=== PATIENT | male | born 1950 | race Caucasian/White ===

== ENCOUNTER 2019-07-21 18:50 | Emergency (ER) | payer MEDICARE ==
[2019-07-21 19:03] VITALS: TEMP 98.3
[2019-07-21 20:02] LABS: Basophils % (A) 0 %; Eosinophils # (A) 0.3 k/uL (0-0.7); Eosinophils % (A) 2 %; HCT 46.1 % (39.0-53.0); HGB 15.9 gm/dL (13.0-17.5); Lymphocytes # (A) 1.4 k/uL (1.0-4.8); Lymphocytes % (A) 9 %; MCH 30.4 pg (25.0-35.0); MCHC 34.5 g/dL (31.0-37.0); MCV 88.2 fL (80.0-100.0); Monocytes # (A) 0.7 k/uL (0-1.0); Monocytes % (A) 5 %; Neutrophils # (A) 12.3 k/uL (1.3-7.7); Neutrophils % (A) 83 %; Platelet Count 161 k/uL (150-450); RBC 5.22 m/uL (4.30-5.90); RDW 13.6 % (11.5-15.5); WBC 14.9 k/uL (3.8-10.6)
--- NOTE | 2019-07-21 20:02 | XR ---
EXAMINATION TYPE: XR chest 1V portable DATE OF EXAM: 07/21/2019 COMPARISON: NONE HISTORY: Cough TECHNIQUE: Single frontal view of the chest is obtained. FINDINGS: Subsegmental changes at the lung bases. Hyperinflation. No overt failure. Heart mildly enl arged. Eventration right hemidiaphragm. Arthropathy of the shoulders. No overt failure. IMPRESSION: 1. Findings suggest COPD with basilar atelectasis favored over pneumonia. Retrocardiac density in the left paraspinal region may represent a small hiatal hernia could be correlated with PA and lateral v iews of the chest as clinically warranted.
[2019-07-21 20:11] LABS: Albumin 4.5 g/dL (3.5-5.0); C Reactive Protein 63.8 mg/L (<10.0); Calcium 9.4 mg/dL (8.4-10.2); Potassium 4.3 mmol/L (3.5-5.1); Total Bilirubin 0.7 mg/dL (0.2-1.3); Total Protein 7.5 g/dL (6.3-8.2)
[2019-07-21 20:14] LABS: Partial Thromboplastin Time 23.7 sec (22.0-30.0); Prothrombin Time 10.1 sec (9.0-12.0)
--- NOTE | 2019-07-21 20:31 | ED ---
Fever HPI - General Chief Complaint: Fever Stated Complaint: Fever,sob,cough Time Seen by Provider: 07/21/19 19:00 Source: patient Mode of arrival: ambulatory Limitations: no limitations - History of Present Illness Initial Comments: The patient is a 68-year-old male past medical history of emphysema and hypertension presents emergency department with reported fevers, nonproductive cough and general myalgias. The patient reports that his symptoms started yesterday. He denies any sick contacts with similar symptoms. He reports to lower calf cramping and shortness of breath. Also admits to feeling lightheaded. Denies any chest pain. No previous cardiac history. Has been using his inhalers as directed however continues to have shortness of breath. States that his temperature 102 at home. He took Maeve aspirin for his fevers. Denies any nausea or vomiting. No abdominal pain or back pain. No lower extremity edema. There are no other alleviating, precipitating or modifying factors - Related Data Home Medications Medication Instructions Recorded Confirmed Albuterol Sulfate [Proair Hfa] 2 puff INHALATION RT-Q4H PRN 07/21/19 07/21/19 Beclomethasone Dipropionate [Qvar 1 puff INHALATION RT-DAILY 07/21/19 07/21/19 40 mcg Redihaler] Lisinopril [Zestril] 20 mg PO DAILY 07/21/19 07/21/19 Potassium Chloride ER [K-Dur 20] 20 meq PO DAILY 07/21/19 07/21/19 Previous Rx's Medication Instructions Recorded Amoxicillin/Potassium Clav 1 tab PO Q12HR #20 tab 07/21/19 [Augmentin 875-125 Tablet] predniSONE [Deltasone] 20 mg PO BID #10 tab 07/21/19 Allergies Allergy/AdvReac Type Severity Reaction Status Date / Time No Known Allergies Allergy Verified 07/21/19 22:07 Review of Systems ROS Statement: Those systems with pertinent positive or pertinent negative responses have been documented in the HPI. ROS Other: All systems not noted in ROS Statement are negative. Past Medical History Past Medical History: Hypertension Additional Past Medical History / Comment(s): emphysema Past Surgical History: No Surgical Hx Reported Smoking Status: Former smoker Past Alcohol Use History: None Reported Past Drug Use History: None Reported General Exam Limitations: no limitations General appearance: alert, in no apparent distress, other (diaphoretic) Head exam: Present: atraumatic, normocephalic, normal inspection Eye exam: Present: normal appearance, PERRL, EOMI. Absent: scleral icterus, conjunctival injection, periorbital swelling ENT exam: Present: normal exam, mucous membranes moist Neck exam: Present: normal inspection. Absent: tenderness, meningismus, lymphadenopathy Respiratory exam: Present: wheezes. Absent: respiratory distress, rales, rhonchi, stridor Cardiovascular Exam: Present: normal rhythm, tachycardia, normal heart sounds. Absent: systolic murmur, diastolic murmur, rubs, gallop, clicks GI/Abdominal exam: Present: soft, normal bowel sounds. Absent: distended, tenderness, guarding, rebound, rigid Extremities exam: Present: normal inspection, full ROM, normal capillary refill. Absent: tenderness, pedal edema, joint swelling, calf tenderness Back exam: Present: normal inspection Neurological exam: Present: alert, oriented X3, CN II-XII intact Psychiatric exam: Present: normal affect, normal mood Skin exam: Present: warm, dry, intact, normal color. Absent: rash Course Vital Signs 07/21/19 07/21/19 07/21/19 18:57 19:18 20:30 Temperature 98.3 F Pulse Rate 121 H 108 H Respiratory 18 24 Rate Blood Pressure 101/68 113/73 O2 Sat by Pulse 94 L 93 L Oximetry 07/21/19 07/21/19 07/22/19 21:00 21:30 00:12 Temperature Pulse Rate 102 H 104 H 95 Respiratory 18 Rate Blood Pressure 100/72 95/68 101/74 O2 Sat by Pulse 93 L 94 L 94 L Oximetry Medical Decision Making - Medical Decision Making Upon arrival the patient is placed in room 10. A thorough history and physical exam is performed. The patient is extremely diaphoretic. 12-lead EKG is performed which demonstrates sinus tachycardia. Laboratories were conducted which demonstrated white blood cell count of 14.9. D-dimer elevated at 1. Glucose 117. Troponin is negative. C-reactive protein 63.8. BNP 258. Influenza A, B and coronavirus are negative. Chest x-ray was performed which demonstrates findings suggestive of COPD with bibasilar atelectasis. Because of patient's elevated d-dimer chest CTA was performed which demonstrates no evidence of pulmonary embolism with mild pulmonary infiltrates. The patient is reevaluated and states he feels much improved. Vitals are assessed and the patient does have a normal heart rate. Patient continues saturating 94% on room air. Patient does have a dip in his blood pressure however this does normalize. I discussed the diagnosis, differential and treatment options. Patient prefers to be discharged home at this time as he is concerned about the Covid pandemic. I did request a repeat a troponin on the patient for which he did agree. Second troponin returns and is negative. This time the patient will be discharged home on antibiotics and steroids. He is to follow-up with his primary care doctor in 2-4 days. Return to work for for any new or worsening symptoms. Patient was in agreement treatment plan discharge home in stable condition - Lab Data Result diagrams: 07/21/19 19:40 07/21/19 19:40 Lab Results 07/21/19 07/21/19 07/21/19 Range/Units 19:40 19:40 19:40 WBC 14.9 H (3.8-10.6) k/uL RBC 5.22 (4.30-5.90) m/uL Hgb 15.9 (13.0-17.5) gm/dL Hct 46.1 (39.0-53.0) % MCV 88.2 (80.0-100.0) fL MCH 30.4 (25.0-35.0) pg MCHC 34.5 (31.0-37.0) g/dL RDW 13.6 (11.5-15.5) % Plt Count 161 (150-450) k/uL Neutrophils % 83 % Lymphocytes % 9 % Monocytes % 5 % Eosinophils % 2 % Basophils % 0 % Neutrophils # 12.3 H (1.3-7.7) k/uL Lymphocytes # 1.4 (1.0-4.8) k/uL Monocytes # 0.7 (0-1.0) k/uL Eosinophils # 0.3 (0-0.7) k/uL Basophils # 0.0 (0-0.2) k/uL PT 10.1 (9.0-12.0) sec INR 1.0 (<1.2) APTT 23.7 (22.0-30.0) sec D-Dimer 1.00 H (<0.60) mg/L FEU Sodium 135 L (137-145) mmol/L Potassium 4.3 (3.5-5.1) mmol/L Chloride 102 (98-107) mmol/L Carbon Dioxide 23 (22-30) mmol/L Anion Gap 10 mmol/L BUN 18 (9-20) mg/dL Creatinine 1.25 (0.66-1.25) mg/dL Est GFR (CKD-EPI)AfAm 68 (>60 ml/min/1.73 sqM) Est GFR (CKD-EPI)NonAf 58 (>60 ml/min/1.73 sqM) Glucose 117 H (74-99) mg/dL Plasma Lactic Acid Marvin (0.7-2.0) mmol/L Calcium 9.4 (8.4-10.2) mg/dL Ferritin 234.1 (22.0-322.0) ng/mL Total Bilirubin 0.7 (0.2-1.3) mg/dL AST 26 (17-59) U/L ALT 23 (4-49) U/L Alkaline Phosphatase 51 (38-126) U/L Lactate Dehydrogenase 532 (313-618) U/L Troponin I (0.000-0.034) ng/mL C-Reactive Protein 63.8 H (<10.0) mg/L NT-Pro-B Natriuret Pep pg/mL Total Protein 7.5 (6.3-8.2) g/dL Albumin 4.5 (3.5-5.0) g/dL Procalcitonin (0.02-0.09) ng/mL Coronavirus (PCR) (Not Detectd) Influenza Type A RNA (Not Detectd) Influenza Type B (PCR) (Not Detectd) 07/21/19 07/21/19 07/21/19 Range/Units 19:40 19:40 19:40 WBC (3.8-10.6) k/uL RBC (4.30-5.90) m/uL Hgb (13.0-17.5) gm/dL Hct (39.0-53.0) % MCV (80.0-100.0) fL MCH (25.0-35.0) pg MCHC (31.0-37.0) g/dL RDW (11.5-15.5) % Plt Count (150-450) k/uL Neutrophils % % Lymphocytes % % Monocytes % % Eosinophils % % Basophils % % Neutrophils # (1.3-7.7) k/uL Lymphocytes # (1.0-4.8) k/uL Monocytes # (0-1.0) k/uL Eosinophils # (0-0.7) k/uL Basophils # (0-0.2) k/uL PT (9.0-12.0) sec INR (<1.2) APTT (22.0-30.0) sec D-Dimer (<0.60) mg/L FEU Sodium (137-145) mmol/L Potassium (3.5-5.1) mmol/L Chloride (98-107) mmol/L Carbon Dioxide (22-30) mmol/L Anion Gap mmol/L BUN (9-20) mg/dL Creatinine (0.66-1.25) mg/dL Est GFR (CKD-EPI)AfAm (>60 ml/min/1.73 sqM) Est GFR (CKD-EPI)NonAf (>60 ml/min/1.73 sqM) Glucose (74-99) mg/dL Plasma Lactic Acid Marvin 1.0 (0.7-2.0) mmol/L Calcium (8.4-10.2) mg/dL Ferritin (22.0-322.0) ng/mL Total Bilirubin (0.2-1.3) mg/dL AST (17-59) U/L ALT (4-49) U/L Alkaline Phosphatase (38-126) U/L Lactate Dehydrogenase (313-618) U/L Troponin I <0.012 (0.000-0.034) ng/mL C-Reactive Protein (<10.0) mg/L NT-Pro-B Natriuret Pep pg/mL Total Protein (6.3-8.2) g/dL Albumin (3.5-5.0) g/dL Procalcitonin 0.26 H (0.02-0.09) ng/mL Coronavirus (PCR) (Not Detectd) Influenza Type A RNA (Not Detectd) Influenza Type B (PCR) (Not Detectd) 07/21/19 07/21/19 07/21/19 Range/Units 20:23 23:05 23:05 WBC (3.8-10.6) k/uL RBC (4.30-5.90) m/uL Hgb (13.0-17.5) gm/dL Hct (39.0-53.0) % MCV (80.0-100.0) fL MCH (25.0-35.0) pg MCHC (31.0-37.0) g/dL RDW (11.5-15.5) % Plt Count (150-450) k/uL Neutrophils % % Lymphocytes % % Monocytes % % Eosinophils % % Basophils % % Neutrophils # (1.3-7.7) k/uL Lymphocytes # (1.0-4.8) k/uL Monocytes # (0-1.0) k/uL Eosinophils # (0-0.7) k/uL Basophils # (0-0.2) k/uL PT (9.0-12.0) sec INR (<1.2) APTT (22.0-30.0) sec D-Dimer (<0.60) mg/L FEU Sodium (137-145) mmol/L Potassium (3.5-5.1) mmol/L Chloride (98-107) mmol/L Carbon Dioxide (22-30) mmol/L Anion Gap mmol/L BUN (9-20) mg/dL Creatinine (0.66-1.25) mg/dL Est GFR (CKD-EPI)AfAm (>60 ml/min/1.73 sqM) Est GFR (CKD-EPI)NonAf (>60 ml/min/1.73 sqM) Glucose (74-99) mg/dL Plasma Lactic Acid Marvin (0.7-2.0) mmol/L Calcium (8.4-10.2) mg/dL Ferritin (22.0-322.0) ng/mL Total Bilirubin (0.2-1.3) mg/dL AST (17-59) U/L ALT (4-49) U/L Alkaline Phosphatase (38-126) U/L Lactate Dehydrogenase (313-618) U/L Troponin I <0.012 (0.000-0.034) ng/mL C-Reactive Protein (<10.0) mg/L NT-Pro-B Natriuret Pep 258 pg/mL Total Protein (6.3-8.2) g/dL Albumin (3.5-5.0) g/dL Procalcitonin (0.02-0.09) ng/mL Coronavirus (PCR) Not Detected (Not Detectd) Influenza Type A RNA Not Detected (Not Detectd) Influenza Type B (PCR) Not Detected (Not Detectd) - EKG Data EKG Comments: EKG demonstrates a sinus tachycardia with a ventricular rate of 112. ID interval 156. QRS 86. QTC 461. No acute ST segment elevations or depressions concerning for ischemic changes. Disposition Clinical Impression: Cough, COPD (chronic obstructive pulmonary disease) Disposition: HOME SELF-CARE Condition: Stable Instructions (If sedation given, give patient instructions): Pneumonia (ED) Additional Instructions: Please follow up with your primary care doctor in 2-4 days. Return to the emergency room for any new or worsening symptoms Prescriptions: Amoxicillin/Potassium Clav [Augmentin 875-125 Tablet] 1 tab PO Q12HR #20 tab predniSONE [Deltasone] 20 mg PO BID #10 tab Is patient prescribed a controlled substance at d/c from ED?: No Referrals: Jose Angel Colby DO [Primary Care Provider] - 1-2 days Time of Disposition: 23:54
[2019-07-21] MEDS ORDERED: SODIUM CHLORIDE 0.9% 500 ML 500 ML IV ONE (21:56)
--- NOTE | 2019-07-21 22:27 | CT ---
EXAMINATION TYPE: CT chest angio for PE DATE OF EXAM: 07/21/2019 COMPARISON: None HISTORY: Shortness of breath, chest pain, tachycardia, fever, dry cough, elevated d-dimer and leg ignacio n. CT DLP: 1503.7 mGycm Automated exposure control for dose reduction was used. CONTRAST: Performed with IV Contrast, patient injected with 160 mL of Isovue 370. There are 3-D post processed images. There is some pulmonary emphysema with mild bullous disease at the lung apices. There is reticular in terstitial infiltrate in the superior segment right lower lobe adjacent to the spine. There is some p atchy airspace and interstitial infiltrate at the posterior lung bases. There is no pleural effusion. There is no pericardial effusion. Heart size is normal. There is normal contrast opacification of the pulmonary arteries. There are no filling defects. Thora cic aorta is intact without evidence of aneurysm or dissection. There is hypertrophic spurring in the thoracic spine. I see no bony destructive process. IMPRESSION: No evidence of pulmonary embolism. Mild pulmonary infiltrates as above more likely related to inflammatory disease. Pulmonary emphysema.
[2019-07-21] MEDS ORDERED: methylPREDNISolone SOD SUCCI 125 MG/2 ML VIAL IV STA (23:32)
[2019-07-21] MEDS ORDERED: AZITHROMYCIN 500 MG TAB PO STA (23:33)
[2019-07-21] MEDS ORDERED: cefTRIAXone IN SWFI 1,000 MG/10 ML SYRINGE IVP STA (23:33)
[2019-07-22 00:13] VITALS: BP 101/74; PULSE 95; RESP 18
[2019-07-22 01:50] LABS: Ferritin 234.1 ng/mL (22.0-322.0)
== END 2019-07-22 00:22 | disposition home or self-care (01) ==
LOC: EC 18:50
DX: Z03.818 Encounter for observation for suspected exposure to other biological agents ruled out (principal); J44.9 Chronic obstructive pulmonary disease, unspecified; R79.89 Other specified abnormal findings of blood chemistry; I10 Essential (primary) hypertension; Z87.891 Personal history of nicotine dependence; Z79.51 Long term (current) use of inhaled steroids; Z79.899 Other long term (current) drug therapy
CPT/HCPCS: 99284; 96374; 96375; 96361 ×2; 36415; 93005; 85379; 83880; 80053; 82728; 83605; 83615; 84484; 85025; 85610; 85730; 86140; 87040; 87502; 84145; 87635; 71045; 71275; J2930; J0696; Q9967

== ENCOUNTER 2022-06-23 15:49 | Inpatient (IN) | payer MEDICARE ==
[2022-06-23] MEDS ORDERED: IPRATROPIUM-ALBUTEROL 3 ML NEB INHALATION STA (16:44)
[2022-06-23] MEDS ORDERED: methylPREDNISolone SOD SUCCI 125 MG/2 ML VIAL IV STA (16:44)
--- NOTE | 2022-06-23 16:46 | ED ---
SOB HPI - General Chief Complaint: Shortness of Breath Stated Complaint: chest congestion Time Seen by Provider: 06/23/22 16:46 Source: patient, RN notes reviewed Mode of arrival: ambulatory Limitations: no limitations - History of Present Illness Initial Comments: Patient is a 71-year-old male presenting with chief complaint of shortness of breath. Patient admits to headache, congestion, and productive cough that has been ongoing for the last 3 days. Patient is a former smoker and has history of COPD. Patient states that "it feels like my chest is congested". No fevers or chills. No chest pain. No palpitations or weakness. No numbness or tingling. No dizziness or lightheadedness. - Related Data Home Medications Medication Instructions Recorded Confirmed Albuterol Sulfate [Proair Hfa] 2 puff INHALATION RT-Q4H PRN 07/21/19 06/23/22 Beclomethasone Dipropionate [Qvar 2 puff INHALATION RT-BID PRN 07/21/19 06/23/22 40 mcg Redihaler] Allergies Allergy/AdvReac Type Severity Reaction Status Date / Time No Known Allergies Allergy Verified 06/23/22 20:53 Review of Systems ROS Statement: Those systems with pertinent positive or pertinent negative responses have been documented in the HPI. ROS Other: All systems not noted in ROS Statement are negative. Past Medical History Past Medical History: COPD, Hypertension Additional Past Medical History / Comment(s): emphysema History of Any Multi-Drug Resistant Organisms: None Reported Past Surgical History: No Surgical Hx Reported Past Psychological History: No Psychological Hx Reported Smoking Status: Former smoker Past Alcohol Use History: None Reported Past Drug Use History: None Reported General Exam - General Exam Comments Initial Comments: Visual Physical Exam Vital signs reviewed General: Well-appearing, nontoxic, no acute distress. Head: Normocephalic, atraumatic Eyes: PERRLA, EOMI ENT: Airway patent Chest: Nonlabored breathing Skin: No visual rash, normal skin tone Neuro: Alert and oriented 3 Musculoskeletal: No gross abnormalities Limitations: no limitations General appearance: alert, in no apparent distress Head exam: Present: atraumatic, normocephalic, normal inspection Eye exam: Present: normal appearance Neck exam: Present: normal inspection, full ROM Respiratory exam: Present: wheezes Cardiovascular Exam: Present: normal rhythm, tachycardia, normal heart sounds. Absent: systolic murmur, diastolic murmur, rubs, gallop, clicks Neurological exam: Present: alert, oriented X3, CN II-XII intact Psychiatric exam: Present: normal affect, normal mood Skin exam: Present: warm, dry, intact, normal color. Absent: rash Course Vital Signs 06/23/22 06/23/22 06/23/22 16:37 18:48 18:59 Temperature 98.8 F Pulse Rate 97 102 H 104 H Respiratory 22 Rate Blood Pressure 167/109 O2 Sat by Pulse 91 L Oximetry 06/23/22 06/23/22 06/23/22 20:06 21:09 21:23 Temperature Pulse Rate 112 H 109 H 109 H Respiratory 18 20 Rate Blood Pressure 163/111 167/111 O2 Sat by Pulse 93 L 94 L Oximetry 06/23/22 21:50 Temperature Pulse Rate 116 H Respiratory Rate Blood Pressure O2 Sat by Pulse Oximetry Medical Decision Making - Medical Decision Making Was pt. sent in by a medical professional or institution (, PA, CONSUMER AFFAIRS SPECIALIST, urgent care, hospital, or usp...) When possible be specific @ -No Did you speak to anyone other than the patient for history (EMS, parent, family, police, friend...)? What history was obtained from this source @ -No Did you review nursing and triage notes (agree or disagree)? Why? @ -I reviewed and agree with nursing and triage notes Were old charts reviewed (outside hosp., previous admission, EMS record, old EKG, old radiological studies, urgent care reports/EKG's, usp records)? Report findings @ -No old charts were reviewed Differential Diagnosis (chest pain, altered mental status, abdominal pain women, abdominal pain men, vaginal bleeding, weakness, fever, dyspnea, syncope, headache, dizziness, GI bleed, back pain, seizure, CVA, palpatations, mental health, musculoskeletal)? @ -MDM Differential Dyspnea: Coronary syndrome, arrhythmia, tamponade, asthma, COPD, pulmonary embolism, pneumonia, pneumothorax, pulmonary effusion, anaphylaxis, diabetic ketoacidosis, flailed chest, pulmonary contusion, diaphragmatic rupture, anemia, neuromuscular this is not meant to be an all-inclusive list. EKG interpreted by me (3pts min.). @ -Sinus rhythm ventricular rate 99. NE interval 156. QRS 86. QT 339. QTc 395. S1 S2 S3 pattern consistent with pulmonary disease. X-rays interpreted by me (1pt min.). @ -Chest x-ray shows no acute process. CT interpreted by me (1pt min.). @ -CTA shows no evidence of pulmonary embolism. Mild pulmonary emphysema. There is some left lower lobe pneumonia and atelectasis which is new compared to exam there is clearing of some mild pneumonia right posterior lung base compared to old exam U/S interpreted by me (1pt. min.). @ -None done What testing was considered but not performed or refused? (CT, X-rays, U/S, labs)? Why? @ -None What meds were considered but not given or refused? Why? @ -None Did you discuss the management of the patient with other professionals (professionals i.e. , PA, CONSUMER AFFAIRS SPECIALIST, lab, RT, psych nurse, executive secretary social welfare, sensitized paper tester, teacher, compliance review officer, ed case manager)? Give summary @ -Discussed with admitting physician Dr. Reardon Was smoking cessation discussed for >3mins.? @ -No Was critical care preformed (if so, how long)? @ -No Were there social determinants of health that impacted care today? How? (Homelessness, low income, unemployed, alcoholism, drug addiction, transportation, low edu. Level, literacy, decrease access to med. care, [facility] [facility], rehab)? @ -No Was there de-escalation of care discussed even if they declined (Discuss DNR or withdrawal of care, Hospice)? DNR status @ -No What co-morbidities impacted this encounter? (DM, HTN, Smoking, COPD, CAD, Cance r, CVA, ARF, Chemo, Hep., AIDS, mental health diagnosis, sleep apnea, morbid obesity)? @ -COPD Was patient admitted / discharged? Hospital course, mention meds given and route, prescriptions, significant lab abnormalities, going to OR and other pertinent info. @ -Patient is a 71-year-old male presenting with chief complaint of URI-like symptoms and shortness of breath ongoing for the last 3 days. He has a history of COPD. On physical examination diffuse wheezes are heard on auscultation. Patient was placed on 2 L nasal cannula. He is given Solu-Medrol 125 mg and a DuoNeb breathing treatment. Patient reports no significant improvement after medications, he is given another 5 mg of albuterol. Lab work shows no leukocytosis or anemia. Troponin is less than 0.012. Patient is negative for influenza, RSV, and Covid. Chest x-ray shows no acute process. D-dimer is 0.83. CTA shows no evidence of pulmonary embolism, does show signs of pneumonia. Patient is given a dose of Rocephin and azithromycin. He is maintained on 2 L nasal cannula and shows no signs of respiratory distress. He is resting comfortably. Patient is educated on these findings informed that he is likely undergoing a COPD exacerbation and is advised to stay for admission. Patient is agreeable with this plan. I spoke with Dr. Reardon who accepted admiss ion. I discussed this case with my attending Dr. Grubbs Undiagnosed new problem with uncertain prognosis? @ -No Drug Therapy requiring intensive monitoring for toxicity (Heparin, Nitro, Insulin, Cardizem)? @ -No Were any procedures done? @ -No Diagnosis/symptom? @ -COPD exacerbation Acute, or Chronic, or Acute on Chronic? @ -Acute Uncomplicated (without systemic symptoms) or Complicated (systemic symptoms)? @ -Complicated Side effects of treatment? @ -No Exacerbation, Progression, or Severe Exacerbation? @ -Exacerbation Poses a threat to life or bodily function? How? (Chest pain, [place], [place], pneumonia, PE, COPD, DKA, ARF, appy, cholecystitis, CVA, Diverticulitis, Homicidal, Suicidal, threat to staff... and all critical care pts) @ -Yes - Lab Data Result diagrams: 06/23/22 17:30 06/23/22 17:30 Lab Results 06/23/22 06/23/22 06/23/22 Range/Units 17:30 17:30 17:30 WBC 7.9 (3.8-10.6) k/uL RBC 5.79 (4.30-5.90) m/uL Hgb 17.1 (13.0-17.5) gm/dL Hct 52.2 (39.0-53.0) % MCV 90.1 (80.0-100.0) fL MCH 29.5 (25.0-35.0) pg MCHC 32.8 (31.0-37.0) g/dL RDW 13.5 (11.5-15.5) % Plt Count 154 (150-450) k/uL MPV 8.2 Neutrophils % 66 % Lymphocytes % 22 % Monocytes % 7 % Eosinophils % 2 % Basophils % 1 % Neutrophils # 5.2 (1.3-7.7) k/uL Lymphocytes # 1.8 (1.0-4.8) k/uL Monocytes # 0.6 (0-1.0) k/uL Eosinophils # 0.1 (0-0.7) k/uL Basophils # 0.0 (0-0.2) k/uL PT 10.4 (9.0-12.0) sec INR 1.0 (<1.2) APTT 24.8 (22.0-30.0) sec D-Dimer (<0.60) mg/L FEU Sodium 138 (137-145) mmol/L Potassium 4.5 (3.5-5.1) mmol/L Chloride 97 L (98-107) mmol/L Carbon Dioxide 35 H (22-30) mmol/L Anion Gap 6 mmol/L BUN 14 (9-20) mg/dL Creatinine 1.25 (0.66-1.25) mg/dL Est GFR (CKD-EPI)AfAm 66 (>60 ml/min/1.73 sqM) Est GFR (CKD-EPI)NonAf 57 (>60 ml/min/1.73 sqM) Glucose 116 H (74-99) mg/dL Plasma Lactic Acid Marvin (0.7-2.0) mmol/L Calcium 9.1 (8.4-10.2) mg/dL Magnesium 2.0 (1.6-2.3) mg/dL Total Bilirubin 0.9 (0.2-1.3) mg/dL AST 32 (17-59) U/L ALT 27 (4-49) U/L Alkaline Phosphatase 47 (38-126) U/L Troponin I (0.000-0.034) ng/mL Total Protein 7.9 (6.3-8.2) g/dL Albumin 4.6 (3.5-5.0) g/dL Influenza Type A (PCR) (Not Detectd) Influenza Type B (PCR) (Not Detectd) RSV (PCR) (Not Detectd) SARS-CoV-2 (PCR) (Not Detectd) 03/17/23 03/17/23 03/17/23 Range/Units 17:30 17:30 17:30 WBC (3.8-10.6) k/uL RBC (4.30-5.90) m/uL Hgb (13.0-17.5) gm/dL Hct (39.0-53.0) % MCV (80.0-100.0) fL MCH (25.0-35.0) pg MCHC (31.0-37.0) g/dL RDW (11.5-15.5) % Plt Count (150-450) k/uL MPV Neutrophils % % Lymphocytes % % Monocytes % % Eosinophils % % Basophils % % Neutrophils # (1.3-7.7) k/uL Lymphocytes # (1.0-4.8) k/uL Monocytes # (0-1.0) k/uL Eosinophils # (0-0.7) k/uL Basophils # (0-0.2) k/uL PT (9.0-12.0) sec INR (<1.2) APTT (22.0-30.0) sec D-Dimer (<0.60) mg/L FEU Sodium (137-145) mmol/L Potassium (3.5-5.1) mmol/L Chloride (98-107) mmol/L Carbon Dioxide (22-30) mmol/L Anion Gap mmol/L BUN (9-20) mg/dL Creatinine (0.66-1.25) mg/dL Est GFR (CKD-EPI)AfAm (>60 ml/min/1.73 sqM) Est GFR (CKD-EPI)NonAf (>60 ml/min/1.73 sqM) Glucose (74-99) mg/dL Plasma Lactic Acid Marvin 1.3 (0.7-2.0) mmol/L Calcium (8.4-10.2) mg/dL Magnesium (1.6-2.3) mg/dL Total Bilirubin (0.2-1.3) mg/dL AST (17-59) U/L ALT (4-49) U/L Alkaline Phosphatase (38-126) U/L Troponin I <0.012 (0.000-0.034) ng/mL Total Protein (6.3-8.2) g/dL Albumin (3.5-5.0) g/dL Influenza Type A (PCR) Not Detected (Not Detectd) Influenza Type B (PCR) Not Detected (Not Detectd) RSV (PCR) Not Detected (Not Detectd) SARS-CoV-2 (PCR) Not Detected (Not Detectd) 06/23/22 Range/Units 17:30 WBC (3.8-10.6) k/uL RBC (4.30-5.90) m/uL Hgb (13.0-17.5) gm/dL Hct (39.0-53.0) % MCV (80.0-100.0) fL MCH (25.0-35.0) pg MCHC (31.0-37.0) g/dL RDW (11.5-15.5) % Plt Count (150-450) k/uL MPV Neutrophils % % Lymphocytes % % Monocytes % % Eosinophils % % Basophils % % Neutrophils # (1.3-7.7) k/uL Lymphocytes # (1.0-4.8) k/uL Monocytes # (0-1.0) k/uL Eosinophils # (0-0.7) k/uL Basophils # (0-0.2) k/uL PT (9.0-12.0) sec INR (<1.2) APTT (22.0-30.0) sec D-Dimer 0.83 H (<0.60) mg/L FEU Sodium (137-145) mmol/L Potassium (3.5-5.1) mmol/L Chloride (98-107) mmol/L Carbon Dioxide (22-30) mmol/L Anion Gap mmol/L BUN (9-20) mg/dL Creatinine (0.66-1.25) mg/dL Est GFR (CKD-EPI)AfAm (>60 ml/min/1.73 sqM) Est GFR (CKD-EPI)NonAf (>60 ml/min/1.73 sqM) Glucose (74-99) mg/dL Plasma Lactic Acid Marvin (0.7-2.0) mmol/L Calcium (8.4-10.2) mg/dL Magnesium (1.6-2.3) mg/dL Total Bilirubin (0.2-1.3) mg/dL AST (17-59) U/L ALT (4-49) U/L Alkaline Phosphatase (38-126) U/L Troponin I (0.000-0.034) ng/mL Total Protein (6.3-8.2) g/dL Albumin (3.5-5.0) g/dL Influenza Type A (PCR) (Not Detectd) Influenza Type B (PCR) (Not Detectd) RSV (PCR) (Not Detectd) SARS-CoV-2 (PCR) (Not Detectd) Disposition Clinical Impression: Acute exacerbation of chronic obstructive pulmonary disease, Pneumonia Disposition: ADMITTED IP TO THIS HOSP Condition: Serious Time of Disposition: 23:44
--- NOTE | 2022-06-23 17:13 | XR ---
EXAMINATION TYPE: XR chest 2V DATE OF EXAM: 06/23/2022 COMPARISON: 07/21/2019 HISTORY: Short of breath TECHNIQUE: 2 views FINDINGS: Heart is normal. Lungs are clear of infiltrate. No heart failure. There are no hilar masses . There is some spurring in the thoracic spine. No pleural effusion. IMPRESSION: No active cardiopulmonary disease. Normal heart. No change.
[2022-06-23 17:42] LABS: Basophils % (A) 1 %; Eosinophils # (A) 0.1 k/uL (0-0.7); Eosinophils % (A) 2 %; HCT 52.2 % (39.0-53.0); HGB 17.1 gm/dL (13.0-17.5); Lymphocytes # (A) 1.8 k/uL (1.0-4.8); Lymphocytes % (A) 22 %; MCH 29.5 pg (25.0-35.0); MCHC 32.8 g/dL (31.0-37.0); MCV 90.1 fL (80.0-100.0); Mean Platelet Volume 8.2; Monocytes # (A) 0.6 k/uL (0-1.0); Monocytes % (A) 7 %; Neutrophils # (A) 5.2 k/uL (1.3-7.7); Neutrophils % (A) 66 %; Platelet Count 154 k/uL (150-450); RBC 5.79 m/uL (4.30-5.90); RDW 13.5 % (11.5-15.5); WBC 7.9 k/uL (3.8-10.6)
[2022-06-23 17:50] LABS: Partial Thromboplastin Time 24.8 sec (22.0-30.0); Prothrombin Time 10.4 sec (9.0-12.0)
[2022-06-23 17:59] LABS: Albumin 4.6 g/dL (3.5-5.0); Calcium 9.1 mg/dL (8.4-10.2); Total Bilirubin 0.9 mg/dL (0.2-1.3); Total Protein 7.9 g/dL (6.3-8.2)
[2022-06-23 18:00] LABS: Potassium 4.5 mmol/L (3.5-5.1)
[2022-06-23] MEDS ORDERED: MAGNESIUM SULFATE-D5W PMX 1 GM in DEXTROSE/WATER 1 100ML.BAG IVPB STA (20:02)
[2022-06-23] MEDS ORDERED: ALBUTEROL NEBULIZED 2.5 MG/3 ML INHALATION STA (20:09)
[2022-06-23] MEDS ORDERED: SODIUM CHLORIDE 0.9% 500 ML 500 ML IV ONE (20:11)
[2022-06-23] MEDS ORDERED: AZITHROMYCIN 500 MG in SODIUM CHLORIDE 0.9% 250 ML IVPB STA (22:48)
--- NOTE | 2022-06-23 22:48 | CT ---
EXAMINATION TYPE: CT chest angio for PE DATE OF EXAM: 06/23/2022 COMPARISON: 07/21/2019 HISTORY: Elevated D-dimer with shortness of breath. CT DLP: 874.1 mGycm Automated exposure control for dose reduction was used. CONTRAST: Performed with IV Contrast, patient injected with 70 cc mL of Isovue 370. There are Three-D postprocessed images. There is some mild pulmonary emphysema. No mediastinal adenopathy. Thoracic aorta appears intact. No aneurysm. There are no hilar masses. There is some interstitial infiltrate and atelectasis left lower lobe posteriorly. There is no evidence of filling defect in the pulmonary arteries. There is suboptimal contrast densit y in the pulmonary arteries. Thoracic aorta shows no sign of dissection. The upper abdominal soft tis sues are intact. The thoracic spine is intact. No compression fracture. Sternum is intact. IMPRESSION: No evidence of pulmonary embolism. Mild pulmonary emphysema. There is some left lower lobe pneumonia and atelectasis which is new compared to exam there is clearing of the mild pneumonia right posterior lung base compared to the old exam.
[2022-06-23] MEDS ORDERED: cefTRIAXone IN SWFI 1,000 MG/10 ML SYRINGE IVP ONE (23:15)
[2022-06-23] MEDS ORDERED: NALOXONE 0.4 MG/ML 1 ML VIAL IVP PRN (23:41)
[2022-06-23] MEDS ORDERED: IPRATROPIUM 0.5 MG/2.5 ML NEBU INHALATION PRN (23:41)
[2022-06-23] MEDS ORDERED: ALBUTEROL NEBULIZED 2.5 MG/3 ML INHALATION PRN (23:59)
[2022-06-24] MEDS ORDERED: ALBUTEROL NEBULIZED 2.5 MG/3 ML INHALATION PRN (00:01)
[2022-06-24] MEDS: FAMOTIDINE 20 MG TAB PO SCH ×2 (08:47→21:06)
[2022-06-24] MEDS: ACETAMINOPHEN TAB 325 MG TAB PO PRN (08:47)
[2022-06-24] MEDS: IPRATROPIUM 0.5 MG/2.5 ML NEBU INHALATION SCH ×4 (09:21→19:43)
[2022-06-24] MEDS: ALBUTEROL NEBULIZED 2.5 MG/3 ML INHALATION SCH ×4 (09:21→19:43)
--- NOTE | 2022-06-24 14:02 | P.CNPUL ---
History of Present Illness Consult date: 06/24/22 Requesting physician: Josey Reardon Reason for consult: dyspnea, COPD Chief complaint: Shortness of breath, cough History of present illness: This is a very pleasant 71-year-old male patient with no current primary care provider. He does have a history of chronic obstructive pulmonary disease from chronic tobacco dependence up to 3 packs per day since the age of 6. He did however quit about 10 years ago. He has been on Qvar air and pro-air in the outpatient setting. He not been seen by a analyst sales in the past. He presented here to the emergency room last evening with a three-day history of increasing shortness of breath, cough and congestion. He also had complaints of fever and chills, leg cramps, rib pain from coughing. He also has acid reflux. Chest x-ray revealed no active cardiopulmonary disease. Normal heart. CT angiogram ruled out pulmonary embolism. There is some mild emphysematous changes. Some left lower lobe atelectasis versus pneumonia. Possible scarring. White count 7.9. Hemoglobin 17.1. D-dimer 0.83. Sodium 138. Potassium 4.5. Bicarb 35. BUN 14. Creatinine 1.25. Glucose 116. Influenza screen negative. RSV screen negative. COVID-19 screen negative. He is seen today in consultation on the regular medical floor. Currently sitting up in bed. Awake and alert in no acute distress. He does have some end expiratory wheezing. Diminished. Loose productive cough with white sputum. Maintaining good O2 saturations in the 90s on 2 L/m per nasal cannula. Afebrile. He's been initiated on albuterol and Spiriva. Antibiotics in the form of ceftriaxone and azithromycin. Review of Systems REVIEW OF SYSTEMS: CONSTITUTIONAL: Denies any recent significant weight loss or weight gain. EYES: Denies change in vision. EARS, NOSE, MOUTH, THROAT: Denies headaches, denies sore throat. CARDIOVASCULAR: Denies chest pain, palpitations or syncopal episodes. RESPIRATORY: Positive for shortness of breath, cough, congestion no hemoptysis. GASTROINTESTINAL: Denies change in appetite, denies abdominal pain GENITOURINARY: Denies hematuria, denies infections. MUSKULOSKELETAL: Denies pain, denies swelling. INTEGUMENTARY: Denies rash, denies eczema. NEUROLOGICAL: Denies recent memory loss, no recent seizure activity. PSYCHIATRIC: Denies anxiety, denies depression. HEMATOLOGIC/LYMPHATIC: Denies anemia, denies enlarged lymph nodes. Past Medical History Past Medical History: COPD, Hypertension Additional Past Medical History / Comment(s): emphysema, Gout History of Any Multi-Drug Resistant Organisms: None Reported Past Surgical History: Hernia Repair, Tonsillectomy Additional Past Surgical History / Comment(s): hemrrhoidectomy Past Psychological History: No Psychological Hx Reported Smoking Status: Former smoker Past Alcohol Use History: None Reported Past Drug Use History: None Reported Medications and Allergies Home Medications Medication Instructions Recorded Confirmed Type Albuterol Sulfate [Proair Hfa] 2 puff INHALATION RT-Q4H PRN 07/21/19 06/23/22 History Beclomethasone Dipropionate [Qvar 2 puff INHALATION RT-BID PRN 07/21/19 06/23/22 History 40 mcg Redihaler] Allergies Allergy/AdvReac Type Severity Reaction Status Date / Time No Known Allergies Allergy Verified 06/23/22 20:53 Physical Exam Vitals: Vital Signs Temp Pulse Pulse Resp BP BP Pulse Ox 06/24/22 09:51 97.4 F L 06/24/22 09:31 112 H 06/24/22 09:23 113 H 96 06/24/22 07:28 101.2 F H 96 17 164/82 91 L 06/24/22 02:27 98.0 F 104 H 20 118/74 92 L 06/24/22 01:00 111 H 18 144/96 95 06/23/22 21:50 116 H 06/23/22 21:23 109 H 06/23/22 21:09 109 H 20 167/111 94 L 06/23/22 20:06 112 H 18 163/111 93 L 06/23/22 18:59 104 H 06/23/22 18:48 102 H 06/23/22 16:37 98.8 F 97 22 167/109 91 L Intake and Output 06/23/22 06/24/22 06/24/22 22:59 06:59 14:59 Intake Total 240 Balance 240 Intake: Oral 240 Other: Weight 163.293 kg 163.293 kg GENERAL EXAM: Alert, very pleasant 71-year-old male, on 2 L nasal cannula, comfortable in no apparent distress. HEAD: Normocephalic. EYES: Normal reaction of pupils, equal size. NOSE: Clear with pink turbinates. THROAT: No erythema or exudates. NECK: No masses, no JVD. CHEST: No chest wall deformity. LUNGS: Equal air entry with bilateral wheezing, few scattered rhonchi, diminished. CVS: S1 and S2 normal with no audible murmur, regular rhythm. ABDOMEN: No hepatosplenomegaly, normal bowel sounds, no guarding or rigidity. SPINE: No scoliosis or deformity SKIN: No rashes CENTRAL NERVOUS SYSTEM: No focal deficits, tone is normal in all 4 extremities. EXTREMITIES: There is no peripheral edema. No clubbing, no cyanosis. Peripheral pulses are intact. Results - Laboratory Findings CBC and BMP: 06/23/22 17:30 06/23/22 17:30 PT/INR, D-dimer PT 10.4 sec (9.0-12.0) 06/23/22 17:30 INR 1.0 (<1.2) 06/23/22 17:30 D-Dimer 0.83 mg/L FEU (<0.60) H 06/23/22 17:30 Abnormal lab findings: Abnormal Labs 06/23/22 06/23/22 17:30 17:30 D-Dimer 0.83 H Chloride 97 L Carbon Dioxide 35 H Glucose 116 H - Diagnostic Findings Chest x-ray: image reviewed CT scan - chest: image reviewed Assessment and Plan Assessment: Acute hypoxemic respiratory failure secondary to an acute exacerbation of chronic obstructive pulmonary disease possibly complicated by early pneumonia. ProCalcitonin pending. Currently on ceftriaxone and azithromycin Former heavy tobacco user of greater than 50 years quit approximately 10 years ago Morbid obesity No primary care provider Plan: The patient was seen and evaluated Chest x-ray, CAT scan of the chest, labs and medications reviewed Check a pro-calcitonin Continue antibiotics for now Continue albuterol, Spiriva Add Pulmicort and Perforomist inhalations Add Solu Medrol 60 mg every 6 hours Titrate the FiO2 as tolerated Encouraged to obtain a primary care provider for health care needs We will recommend follow-up in our office for full PFTs and pulmonary care We will continue to follow and make further recommendations based on his clinical status I have personally seen and examined the patient, performed the documentation and the assessment and plan as written. Number of minutes spent on the visit: 20.
[2022-06-24] MEDS: methylPREDNISolone SOD SUCCI 125 MG/2 ML VIAL IV SCH ×2 (17:18→23:28)
[2022-06-24] MEDS: FORMOTEROL FUMARATE 20 MCG/2 ML NEBU INHALATION SCH (19:43)
[2022-06-24] MEDS: BUDESONIDE 1 MG/2 ML NEBU INHALATION SCH (19:43)
[2022-06-24] MEDS: AZITHROMYCIN 500 MG in SODIUM CHLORIDE 0.9% 250 ML IVPB SCH (21:45)
[2022-06-25] MEDS: methylPREDNISolone SOD SUCCI 125 MG/2 ML VIAL IV SCH ×4 (05:32→23:33)
[2022-06-25] MEDS: FAMOTIDINE 20 MG TAB PO SCH ×2 (08:04→21:27)
[2022-06-25] MEDS: IPRATROPIUM 0.5 MG/2.5 ML NEBU INHALATION SCH ×4 (08:23→20:06)
[2022-06-25] MEDS: FORMOTEROL FUMARATE 20 MCG/2 ML NEBU INHALATION SCH ×2 (08:23→20:06)
[2022-06-25] MEDS: BUDESONIDE 1 MG/2 ML NEBU INHALATION SCH ×2 (08:23→20:06)
[2022-06-25] MEDS: ALBUTEROL NEBULIZED 2.5 MG/3 ML INHALATION SCH ×4 (08:23→20:06)
--- NOTE | 2022-06-25 11:19 | P.HPIM ---
History of Present Illness H&P Date: 06/24/22 Chief Complaint: Shortness of breath 71-year-old male presenting with chief complaint of shortness of breath. Patient admits to headache, congestion, and productive cough that has been ongoing for the last 3 days. Patient is a former smoker and has history of COPD. Patient states that "it feels like my chest is congested". No fevers or chills. No chest pain. No palpitations or weakness. No numbness or tingling. No dizziness or lightheadedness. Chest x-ray revealed no active cardiopulmonary disease. Normal heart. CT angiogram ruled out pulmonary embolism. There is some mild emphysematous changes. Some left lower lobe atelectasis versus pneumonia. Possible scarring. White count 7.9. Hemoglobin 17.1. D-dimer 0.83. Sodium 138. Potassium 4.5. Bicarb 35. BUN 14. Creatinine 1.25. Glucose 116. Influenza screen negative. RSV screen negative. COVID-19 screen negative. He is seen today in consultation on the regular medical floor. Maintaining good O2 saturations in the 90s on 2 L/m per nasal cannula. He's been initiated on albuterol and Spiriva. Antibiotics in the form of ceftriaxone and azithromycin. Review of Systems REVIEW OF SYSTEMS: CONSTITUTIONAL: No fever, no malaise, no fatigue. HEENT: No recent visual problems or hearing problems. Denied any sore throat. CARDIOVASCULAR: No chest pain, orthopnea, PND, no palpitations, no syncope. PULMONARY: No shortness of breath, no cough, no hemoptysis. GASTROINTESTINAL: No diarrhea, no nausea, no vomiting, no abdominal pain. NEUROLOGICAL: No headaches, no weakness, no numbness. HEMATOLOGICAL: Denies any bleeding or petechiae. GENITOURINARY: Denies any burning micturition, frequency, or urgency. MUSCULOSKELETAL/RHEUMATOLOGICAL: Denies any joint pain, swelling, or any muscle pain. ENDOCRINE: Denies any polyuria or polydipsia. The rest of the 14-point review of systems is negative. Past Medical History Past Medical History: COPD, Hypertension Additional Past Medical History / Comment(s): emphysema, Gout History of Any Multi-Drug Resistant Organisms: None Reported Past Surgical History: Hernia Repair, Tonsillectomy Additional Past Surgical History / Comment(s): hemrrhoidectomy Past Psychological History: No Psychological Hx Reported Smoking Status: Former smoker Past Alcohol Use History: None Reported Past Drug Use History: None Reported Medications and Allergies Home Medications Medication Instructions Recorded Confirmed Type Albuterol Sulfate [Proair Hfa] 2 puff INHALATION RT-Q4H PRN 07/21/19 06/23/22 History Beclomethasone Dipropionate [Qvar 2 puff INHALATION RT-BID PRN 07/21/19 06/23/22 History 40 mcg Redihaler] Allergies Allergy/AdvReac Type Severity Reaction Status Date / Time No Known Allergies Allergy Verified 06/23/22 20:53 Physical Exam Vitals: Vital Signs Temp Pulse Pulse Resp BP BP Pulse Ox 06/24/22 07:28 101.2 F H 96 17 164/82 91 L 06/24/22 02:27 98.0 F 104 H 20 118/74 92 L 06/24/22 01:00 111 H 18 144/96 95 06/23/22 21:50 116 H 06/23/22 21:23 109 H 06/23/22 21:09 109 H 20 167/111 94 L 06/23/22 20:06 112 H 18 163/111 93 L 06/23/22 18:59 104 H 06/23/22 18:48 102 H 06/23/22 16:37 98.8 F 97 22 167/109 91 L Intake and Output 06/23/22 06/24/22 06/24/22 22:59 06:59 14:59 Intake Total 240 Balance 240 Intake: Oral 240 Other: Weight 163.293 kg 163.293 kg PHYSICAL EXAMINATION: GENERAL: The patient is alert and oriented x3, not in any acute distress. Well developed, well nourished. HEENT: Pupils are round and equally reacting to light. EOMI. No scleral icterus. No conjunctival pallor. Normocephalic, atraumatic. No pharyngeal erythema. No thyromegaly. CARDIOVASCULAR: S1 and S2 present. No murmurs, rubs, or gallops. PULMONARY: Diffuse bilateral wheezing with occasional basilar crackles. ABDOMEN: Soft, nontender, nondistended, normoactive bowel sounds. No palpable organomegaly. MUSCULOSKELETAL: No joint swelling or deformity. EXTREMITIES: No cyanosis, clubbing, or pedal edema. NEUROLOGICAL: Gross neurological examination did not reveal any focal deficits. SKIN: No rashes. Results CBC & Chem 7: 06/23/22 17:30 06/23/22 17:30 Labs: Abnormal Lab Results - Last 24 Hours (Table) 06/23/22 06/23/22 Range/Units 17:30 17:30 D-Dimer 0.83 H (<0.60) mg/L FEU Chloride 97 L (98-107) mmol/L Carbon Dioxide 35 H (22-30) mmol/L Glucose 116 H (74-99) mg/dL Assessment and Plan Assessment: 1. Acute hypoxemic respiratory failure - Patient is O2 per nasal cannula with plans for titration of FiO2 as tolerated - Patient remains on nebulizer treatments 2. Acute exacerbation COPD - Patient has a place on Solu-Medrol 60 mg IV every 6 hours; has been evaluated by pulmonary and Pulmicort and Perforomist inhalers added; patient remains on DuoNeb nebulizer treatments; remains on Spiriva - Patient is recommended full PFTs and outpatient follow-up with pulmonary service 3. Early pneumonia; restarted on IV Rocephin and azithromycin from ED; we will continue with current antibiotics and monitor CBC, CRP and pro-calcitonin; continue with O2 per nasal cannula 4. Hypertension; patient doesn't take any medication at home; we will monitor blood pressure closely and make adjustments prior to discharge 6. Morbid obesity; counseling done and need for weight reduction DVT prophylaxis; SCDs/subcu heparin CODE STATUS; full code
[2022-06-25 11:36] LABS: Basophils % (A) 0 %; Eosinophils # (A) 0.2 k/uL (0-0.7); Eosinophils % (A) 1 %; HCT 46.2 % (39.0-53.0); HGB 15.5 gm/dL (13.0-17.5); Lymphocytes # (A) 0.8 k/uL (1.0-4.8); Lymphocytes % (A) 6 %; MCHC 33.4 g/dL (31.0-37.0); MCV 89.6 fL (80.0-100.0); Mean Platelet Volume 7.8; Monocytes # (A) 0.3 k/uL (0-1.0); Monocytes % (A) 2 %; Neutrophils # (A) 12.2 k/uL (1.3-7.7); Neutrophils % (A) 90 %; Platelet Count 158 k/uL (150-450); RBC 5.16 m/uL (4.30-5.90); RDW 13.6 % (11.5-15.5); WBC 13.6 k/uL (3.8-10.6)
[2022-06-25 11:47] LABS: African American GFR (CKD) 81 (>60 ml/min/1.73 sqM); Anion Gap 8 mmol/L; Blood Urea Nitrogen 23 mg/dL (9-20); Calcium 9.5 mg/dL (8.4-10.2); Carbon Dioxide 30 mmol/L (22-30); Chloride 100 mmol/L (98-107); Glucose 171 mg/dL (74-99); Non-African American GFR(CKD) 70 (>60 ml/min/1.73 sqM); Potassium 5.2 mmol/L (3.5-5.1); Sodium 138 mmol/L (137-145)
--- NOTE | 2022-06-25 13:20 | P.PN ---
Subjective Progress Note Date: 06/25/22 This is a very pleasant 71-year-old male patient with no current primary care provider. He does have a history of chronic obstructive pulmonary disease from chronic tobacco dependence up to 3 packs per day since the age of 6. He did however quit about 10 years ago. He has been on Qvar air and pro-air in the outpatient setting. He not been seen by a laboratory inspector in the past. He presented here to the emergency room last evening with a three-day history of increasing shortness of breath, cough and congestion. He also had complaints of fever and chills, leg cramps, rib pain from coughing. He also has acid reflux. Chest x-ray revealed no active cardiopulmonary disease. Normal heart. CT angio gram ruled out pulmonary embolism. There is some mild emphysematous changes. Some left lower lobe atelectasis versus pneumonia. Possible scarring. White count 7.9. Hemoglobin 17.1. D-dimer 0.83. Sodium 138. Potassium 4.5. Bicarb 35. BUN 14. Creatinine 1.25. Glucose 116. Influenza screen negative. RSV screen negative. COVID-19 screen negative. He is seen today in consultation on the regular medical floor. Currently sitting up in bed. Awake and alert in no acute distress. He does have some end expiratory wheezing. Diminished. Loose productive cough with white sputum. Maintaining good O2 saturations in the 90s on 2 L/m per nasal cannula. Afebrile. He's been initiated on albuterol and Spiriva. Antibiotics in the form of ceftriaxone and azithromycin. The patient is seen today 06/25/2022 in follow-up on the regular medical floor. He is currently resting comfortably in bed. Awake and alert in no acute distress. Breathing bit easier today compared to yesterday. Still somewhat bronchospastic and wheezing. Maintaining good O2 saturations in the 90s on 3 L/m per nasal cannula. Afebrile. Hemodynamically stable. White count 13.6. Hemoglobin 15.5. Sodium 138. Potassium 5.2. Bicarb 30. BUN 23. Creatinine 1.06. Glucose 171. Pro-calcitonin 0.12. He is continued on ceftriaxone and azithromycin along with bronchodilators and IV Solu-Medrol. Objective - Vital Signs Vital signs: Vital Signs Temp 98.0 F 06/25/22 06:58 Pulse 90 06/25/22 12:13 Resp 18 06/25/22 06:58 BP 138/88 06/25/22 06:58 Pulse Ox 94 L 06/25/22 08:23 FiO2 Intake & Output 06/24/22 06/25/22 06/25/22 18:59 06:59 18:59 Intake Total 720 Balance 720 Intake: Oral 720 Other: # Voids 2 1 - Exam GENERAL EXAM: Alert, 71-year-old male, on 2 L nasal cannula, comfortable in no apparent distress. HEAD: Normocephalic. EYES: Normal reaction of pupils, equal size. NOSE: Clear with pink turbinates. THROAT: No erythema or exudates. NECK: No masses, no JVD. CHEST: No chest wall deformity. LUNGS: Equal air entry with bilateral wheezing, few scattered rhonchi, diminished. CVS: S1 and S2 normal with no audible murmur, regular rhythm. ABDOMEN: No hepatosplenomegaly, normal bowel sounds, no guarding or rigidity. SPINE: No scoliosis or deformity SKIN: No rashes CENTRAL NERVOUS SYSTEM: No focal deficits, tone is normal in all 4 extremities. EXTREMITIES: There is no peripheral edema. No clubbing, no cyanosis. Peripheral pulses are intact. - Labs CBC & Chem 7: 06/25/22 11:22 06/25/22 11:22 Labs: Abnormal Lab Results - Last 24 Hours (Table) 06/24/22 06/25/22 06/25/22 Range/Units 14:23 11:22 11:22 WBC 13.6 H (3.8-10.6) k/uL Neutrophils # 12.2 H (1.3-7.7) k/uL Lymphocytes # 0.8 L (1.0-4.8) k/uL Potassium 5.2 H (3.5-5.1) mmol/L BUN 23 H (9-20) mg/dL Glucose 171 H (74-99) mg/dL Procalcitonin 0.12 H (0.02-0.09) ng/mL Assessment and Plan Assessment: Acute hypoxemic respiratory failure secondary to an acute exacerbation of chronic obstructive pulmonary disease possibly complicated by early pneumonia. ProCalcitonin 0.12. Currently on ceftriaxone and azithromycin Former heavy tobacco user of greater than 50 years quit approximately 10 years ago Morbid obesity No primary care provider Plan: The patient was seen and evaluated Labs and medications reviewed Continue antibiotics Continue bronchodilators, steroids Titrate the FiO2 as tolerated We will continue to follow I have personally seen and examined the patient, performed the documentation and the assessment and plan as written. Number of minutes spent on the visit: 10.
[2022-06-25] MEDS: ACETAMINOPHEN TAB 325 MG TAB PO PRN (21:27)
[2022-06-25] MEDS: AZITHROMYCIN 500 MG in SODIUM CHLORIDE 0.9% 250 ML IVPB SCH (22:11)
[2022-06-26] MEDS: methylPREDNISolone SOD SUCCI 125 MG/2 ML VIAL IV SCH ×5 (05:39→23:53)
[2022-06-26] MEDS: ACETAMINOPHEN TAB 325 MG TAB PO PRN ×2 (05:40→19:47)
[2022-06-26] MEDS: IPRATROPIUM 0.5 MG/2.5 ML NEBU INHALATION SCH ×4 (09:43→20:59)
[2022-06-26] MEDS: FORMOTEROL FUMARATE 20 MCG/2 ML NEBU INHALATION SCH ×2 (09:43→20:59)
[2022-06-26] MEDS: BUDESONIDE 1 MG/2 ML NEBU INHALATION SCH ×2 (09:43→20:59)
[2022-06-26] MEDS: ALBUTEROL NEBULIZED 2.5 MG/3 ML INHALATION SCH ×4 (09:43→20:59)
[2022-06-26] MEDS: FAMOTIDINE 20 MG TAB PO SCH ×2 (10:15→20:51)
[2022-06-26 14:43] LABS: Basophils # (A) 0.02 X 10*3/uL (0.00-0.10); Basophils % (A) 0.1 %; Eosinophils # (A) 0 X 10*3/uL (0.04-0.35); Eosinophils % (A) 0 %; HCT 47.2 % (39.6-50.0); HGB 15.4 g/dL (13.0-17.0); Immature Grans, Automated 0.4 %; Lymphocytes # (A) 1.15 X 10*3/uL (0.90-5.00); Lymphocytes % (A) 8.3 %; MCH 29.3 pg (27.0-32.0); MCHC 32.6 g/dL (32.0-37.0); MCV 89.7 fL (80.0-97.0); Mean Platelet Volume 10.8 fL (9.5-12.2); Monocytes # (A) 0.37 X 10*3/uL (0.20-1.00); Monocytes % (A) 2.7 %; NRBC Per 100 WBC 0 /100 WBCS (0.0-0.0); Neutrophils % (A) 88.5 %; Platelet Count 175 X 10*3/uL (140-440); RBC 5.26 X 10*6/uL (4.40-5.60); RDW 14.1 % (11.5-14.5); WBC 13.89 X 10*3/uL (4.50-10.00)
--- NOTE | 2022-06-26 14:46 | P.PN ---
Subjective 71-year-old male presenting with chief complaint of shortness of breath. Patient admits to headache, congestion, and productive cough that has been ongoing for the last 3 days. Patient is a former smoker and has history of COPD. Patient states that "it feels like my chest is congested". No fevers or chills. No chest pain. No palpitations or weakness. No numbness or tingling. No dizziness or lightheadedness. Chest x-ray revealed no active cardiopulmonary disease. Normal heart. CT angiogram ruled out pulmonary embolism. There is some mild emphysematous changes. Some left lower lobe atelectasis versus pneumonia. Possible scarring. White count 7.9. Hemoglobin 17.1. D-dimer 0.83. Sodium 138. Potassium 4.5. Bicarb 35. BUN 14. Creatinine 1.25. Glucose 116. Influenza screen negative. RSV screen negative. COVID-19 screen negative. He is seen today in consultation on the regular medical floor. Maintaining good O2 saturations in the 90s on 2 L/m per nasal cannula. He's been initiated on albuterol and Spiriva. Antibiotics in the form of ceftriaxone and azithromycin. 06/26/2022 Patient is still complaining of from exertional dyspnea, he still complaining of from significant wheezing He is not on oxygen at home His fever on admission improved and The Zithromax and ceftriaxone for his left lower lobe pneumonia. Amylase on IV Solu Medrol 60 mg Objective - Vital Signs Vital signs: Vital Signs Temp 97.5 F L 06/26/22 07:33 Pulse 90 06/26/22 10:15 Resp 19 06/26/22 07:33 BP 141/91 06/26/22 07:33 Pulse Ox 98 06/26/22 12:18 FiO2 Intake & Output 06/25/22 06/26/22 06/26/22 18:59 06:59 18:59 Intake Total 900 240 Balance 900 240 Intake: Intake, IV Titration 300 Amount Azithromycin 500 mg In 250 Sodium Chloride 0.9% 250 ml @ 250 mls/hr IVPB DAILY@2100 [facility] Rx#: [id number] cefTRIAXone 1 gm In 50 Sodium Chloride 0.9% 50 ml @ 100 mls/hr IVPB Q24H [facility] Rx#:[id number] Oral 600 240 Other: # Voids 1 - Exam GENERAL: The patient is alert and oriented x3, not in any acute distress. Well developed, well nourished. HEENT: Pupils are round and equally reacting to light. EOMI. No scleral icterus. No conjunctival pallor. Normocephalic, atraumatic. No pharyngeal erythema. No thyromegaly. CARDIOVASCULAR: S1 and S2 present. No murmurs, rubs, or gallops. -PULMONARY: Chest is clear to auscultation, no crackles. Significant expiratory wheezing ABDOMEN: Soft, nontender, nondistended, normoactive bowel sounds. No palpable organomegaly. MUSCULOSKELETAL: No joint swelling or deformity. EXTREMITIES: No cyanosis, clubbing, or pedal edema. NEUROLOGICAL: Gross neurological examination did not reveal any focal deficits. SKIN: No rashes. no petechiae. - Labs CBC & Chem 7: 06/26/22 06:53 06/25/22 11:22 Assessment and Plan Assessment: 1. Acute hypoxemic respiratory failure - Patient is O2 per nasal cannula with plans for titration of FiO2 as tolerated - Patient remains on nebulizer treatments 2. Acute exacerbation COPD - Patient has a place on Solu-Medrol 60 mg IV every 6 hours; has been evaluated by pulmonary and Pulmicort and Perforomist inhalers added; patient remains on DuoNeb nebulizer treatments; remains on Spiriva - Patient is recommended full PFTs and outpatient follow-up with pulmonary service 3. Early left lower lobe pneumonia; restarted on IV Rocephin and azithromycin from ED; we will continue with current antibiotics and monitor CBC, CRP and pro- calcitonin; continue with O2 per nasal cannula 4. Hypertension; patient doesn't take any medication at home; we will monitor blood pressure closely and make adjustments prior to discharge 6. Morbid obesity; counseling done and need for weight reduction DVT prophylaxis; SCDs/subcu heparin CODE STATUS; full code
--- NOTE | 2022-06-26 14:57 | P.PN ---
Subjective Progress Note Date: 06/26/22 This is a very pleasant 71-year-old male patient with no current primary care provider. He does have a history of chronic obstructive pulmonary disease from chronic tobacco dependence up to 3 packs per day since the age of 6. He did however quit about 10 years ago. He has been on Qvar air and pro-air in the outpatient setting. He not been seen by a deputy of counter intelligence in the past. He presented here to the emergency room last evening with a three-day history of increasing shortness of breath, cough and congestion. He also had complaints of fever and chills, leg cramps, rib pain from coughing. He also has acid reflux. Chest x-ray revealed no active cardiopulmonary disease. Normal heart. CT angio gram ruled out pulmonary embolism. There is some mild emphysematous changes. Some left lower lobe atelectasis versus pneumonia. Possible scarring. White count 7.9. Hemoglobin 17.1. D-dimer 0.83. Sodium 138. Potassium 4.5. Bicarb 35. BUN 14. Creatinine 1.25. Glucose 116. Influenza screen negative. RSV screen negative. COVID-19 screen negative. He is seen today in consultation on the regular medical floor. Currently sitting up in bed. Awake and alert in no acute distress. He does have some end expiratory wheezing. Diminished. Loose productive cough with white sputum. Maintaining good O2 saturations in the 90s on 2 L/m per nasal cannula. Afebrile. He's been initiated on albuterol and Spiriva. Antibiotics in the form of ceftriaxone and azithromycin. The patient is seen today 06/25/2022 in follow-up on the regular medical floor. He is currently resting comfortably in bed. Awake and alert in no acute distress. Breathing bit easier today compared to yesterday. Still somewhat bronchospastic and wheezing. Maintaining good O2 saturations in the 90s on 3 L/m per nasal cannula. Afebrile. Hemodynamically stable. White count 13.6. Hemoglobin 15.5. Sodium 138. Potassium 5.2. Bicarb 30. BUN 23. Creatinine 1.06. Glucose 171. Pro-calcitonin 0.12. He is continued on ceftriaxone and azithromycin along with bronchodilators and IV Solu-Medrol. The patient is seen today 06/26/2022 in follow-up on the regular medical floor. He is currently sitting up at the bedside. Awake and alert in no acute distress. She is maintaining O2 saturations in the 90s on 2 L/m per nasal cannula. Not quite back to his baseline. He is continued on bronchodilators, IV Solu-Medrol. Antibiotics in the form of ceftriaxone and azithromycin. White count 13.8. Hemoglobin 15.4. Platelets 175. Objective - Vital Signs Vital signs: Vital Signs Temp 97.5 F L 06/26/22 07:33 Pulse 90 06/26/22 13:31 Resp 19 06/26/22 07:33 BP 141/91 06/26/22 07:33 Pulse Ox 98 06/26/22 12:18 FiO2 Intake & Output 06/25/22 06/26/22 06/26/22 18:59 06:59 18:59 Intake Total 900 240 Balance 900 240 Intake: Intake, IV Titration 300 Amount Azithromycin 500 mg In 250 Sodium Chloride 0.9% 250 ml @ 250 mls/hr IVPB DAILY@2100 [facility] Rx#: [id number] cefTRIAXone 1 gm In 50 Sodium Chloride 0.9% 50 ml @ 100 mls/hr IVPB Q24H [facility] Rx#:[id number] Oral 600 240 Other: # Voids 1 - Exam GENERAL EXAM: Alert, 71-year-old male, resting comfortably in bed, on 2 L nasal cannula, comfortable in no apparent distress. HEAD: Normocephalic. EYES: Normal reaction of pupils, equal size. NOSE: Clear with pink turbinates. THROAT: No erythema or exudates. NECK: No masses, no JVD. CHEST: No chest wall deformity. LUNGS: Equal air entry with bilateral wheezing, few scattered rhonchi, diminished. CVS: S1 and S2 normal with no audible murmur, regular rhythm. ABDOMEN: No hepatosplenomegaly, normal bowel sounds, no guarding or rigidity. SPINE: No scoliosis or deformity SKIN: No rashes CENTRAL NERVOUS SYSTEM: No focal deficits, tone is normal in all 4 extremities. EXTREMITIES: There is no peripheral edema. No clubbing, no cyanosis. Peripheral pulses are intact. - Labs CBC & Chem 7: 06/26/22 06:53 06/25/22 11:22 Labs: Abnormal Lab Results - Last 24 Hours (Table) 06/26/22 Range/Units 06:53 WBC 13.89 H (4.50-10.00) X 10*3/uL Immature Gran # 0.05 H (0.00-0.04) X 10*3/uL Neutrophils # 12.30 H (1.80-7.70) X 10*3/uL Eosinophils # 0 L (0.04-0.35) X 10*3/uL Assessment and Plan Assessment: Acute hypoxemic respiratory failure secondary to an acute exacerbation of chronic obstructive pulmonary disease possibly complicated by early pneumonia. ProCalcitonin 0.12. Currently on ceftriaxone and azithromycin Former heavy tobacco user of greater than 50 years quit approximately 10 years ago Morbid obesity Plan: The patient was seen and evaluated Labs and medications reviewed Continue antibiotics Continue bronchodilators, steroids Titrate the FiO2 as tolerated Increase his activity as tolerated Probable discharge in the a.m. We will continue to follow I have personally seen and examined the patient, performed the documentation and the assessment and plan as written. Number of minutes spent on the visit: 10.
[2022-06-26 16:29] LABS: African American GFR (CKD) 70.5 (60.0-200.0); Anion Gap 13.6 mmol/L (10.00-18.00); BUN/Creat Ratio 18.9 Ratio (12.00-20.00); Blood Urea Nitrogen 22.3 mg/dL (9.0-27.0); Calcium 9.7 mg/dL (8.7-10.3); Carbon Dioxide 24.5 mmol/L (20.0-27.5); Non-African American GFR(CKD) 60.9 (60.0-200.0); Potassium 4.7 mmol/L (3.5-5.5)
[2022-06-26] MEDS: AZITHROMYCIN 500 MG in SODIUM CHLORIDE 0.9% 250 ML IVPB SCH (19:47)
[2022-06-27] MEDS: methylPREDNISolone SOD SUCCI 125 MG/2 ML VIAL IV SCH ×2 (05:10→13:32)
[2022-06-27] MEDS: FAMOTIDINE 20 MG TAB PO SCH (07:50)
[2022-06-27] MEDS: ACETAMINOPHEN TAB 325 MG TAB PO PRN (07:53)
[2022-06-27 07:58] VITALS: BP 156/98; RESP 20; TEMP 97.9
[2022-06-27] MEDS: IPRATROPIUM 0.5 MG/2.5 ML NEBU INHALATION SCH ×2 (08:20→12:19)
[2022-06-27] MEDS: FORMOTEROL FUMARATE 20 MCG/2 ML NEBU INHALATION SCH (08:20)
[2022-06-27] MEDS: ALBUTEROL NEBULIZED 2.5 MG/3 ML INHALATION SCH ×2 (08:20→12:19)
[2022-06-27] MEDS: BUDESONIDE 1 MG/2 ML NEBU INHALATION SCH (08:20)
[2022-06-27 12:32] VITALS: PULSE 84
--- NOTE | 2022-06-27 14:55 | P.PN ---
Subjective Progress Note Date: 06/27/22 This is a very pleasant 71-year-old male patient with no current primary care provider. He does have a history of chronic obstructive pulmonary disease from chronic tobacco dependence up to 3 packs per day since the age of 6. He did however quit about 10 years ago. He has been on Qvar air and pro-air in the outpatient setting. He not been seen by a roller skater in the past. He presented here to the emergency room last evening with a three-day history of increasing shortness of breath, cough and congestion. He also had complaints of fever and chills, leg cramps, rib pain from coughing. He also has acid reflux. Chest x-ray revealed no active cardiopulmonary disease. Normal heart. CT angio gram ruled out pulmonary embolism. There is some mild emphysematous changes. Some left lower lobe atelectasis versus pneumonia. Possible scarring. White count 7.9. Hemoglobin 17.1. D-dimer 0.83. Sodium 138. Potassium 4.5. Bicarb 35. BUN 14. Creatinine 1.25. Glucose 116. Influenza screen negative. RSV screen negative. COVID-19 screen negative. He is seen today in consultation on the regular medical floor. Currently sitting up in bed. Awake and alert in no acute distress. He does have some end expiratory wheezing. Diminished. Loose productive cough with white sputum. Maintaining good O2 saturations in the 90s on 2 L/m per nasal cannula. Afebrile. He's been initiated on albuterol and Spiriva. Antibiotics in the form of ceftriaxone and azithromycin. The patient is seen today 06/25/2022 in follow-up on the regular medical floor. He is currently resting comfortably in bed. Awake and alert in no acute distress. Breathing bit easier today compared to yesterday. Still somewhat bronchospastic and wheezing. Maintaining good O2 saturations in the 90s on 3 L/m per nasal cannula. Afebrile. Hemodynamically stable. White count 13.6. Hemoglobin 15.5. Sodium 138. Potassium 5.2. Bicarb 30. BUN 23. Creatinine 1.06. Glucose 171. Pro-calcitonin 0.12. He is continued on ceftriaxone and azithromycin along with bronchodilators and IV Solu-Medrol. The patient is seen today 06/26/2022 in follow-up on the regular medical floor. He is currently sitting up at the bedside. Awake and alert in no acute distress. She is maintaining O2 saturations in the 90s on 2 L/m per nasal cannula. Not quite back to his baseline. He is continued on bronchodilators, IV Solu-Medrol. Antibiotics in the form of ceftriaxone and azithromycin. White count 13.8. Hemoglobin 15.4. Platelets 175. The patient is seen today June 27 in follow-up on the regular medical floor. Awake and alert in no acute distress. Maintaining O2 saturations in the 90s on 2 L/m per nasal cannula. He does qualify for home oxygen which will be ordered. He denies any worsening shortness of breath, cough or congestion. Feeling back to his baseline. He'll be initiated on a prednisone taper. Continue bronchodilators. Complete a course of antibiotics. Objective - Vital Signs Vital signs: Vital Signs Temp 97.9 F 06/27/22 07:25 Pulse 84 06/27/22 12:32 Resp 20 06/27/22 07:25 BP 156/98 06/27/22 07:25 Pulse Ox 87 L 06/27/22 10:28 FiO2 Intake & Output 06/26/22 06/27/22 06/27/22 18:59 06:59 18:59 Intake Total 594 Balance 594 Intake: Oral 594 Other: # Voids 3 1 - Exam GENERAL EXAM: Alert, 71-year-old male, on 2 L nasal cannula, comfortable in no apparent distress. HEAD: Normocephalic. EYES: Normal reaction of pupils, equal size. NOSE: Clear with pink turbinates. THROAT: No erythema or exudates. NECK: No masses, no JVD. CHEST: No chest wall deformity. LUNGS: Equal air entry with bilateral wheezing, few scattered rhonchi, diminished. CVS: S1 and S2 normal with no audible murmur, regular rhythm. ABDOMEN: No hepatosplenomegaly, normal bowel sounds, no guarding or rigidity. SPINE: No scoliosis or deformity SKIN: No rashes CENTRAL NERVOUS SYSTEM: No focal deficits, tone is normal in all 4 extremities. EXTREMITIES: There is no peripheral edema. No clubbing, no cyanosis. Peripheral pulses are intact. - Labs CBC & Chem 7: 06/26/22 06:53 06/26/22 06:53 Labs: Abnormal Lab Results - Last 24 Hours (Table) 06/26/22 Range/Units 06:53 Glucose 134 H (70-110) mg/dL Microbiology - Last 24 Hours (Table) 06/26/22 10:21 Gram Stain - Preliminary Sputum Sputum Culture - Preliminary Assessment and Plan Assessment: Acute hypoxemic respiratory failure secondary to an acute exacerbation of chronic obstructive pulmonary disease possibly complicated by early pneumonia. ProCalcitonin 0.12. Currently on ceftriaxone and azithromycin Former heavy tobacco user of greater than 50 years quit approximately 10 years ago Morbid obesity Plan: The patient was seen and evaluated Labs and medications reviewed Cleared for discharge from the pulmonary standpoint Complete a prednisone taper Continue his home pulmonary medications Complete a course of antibiotics Follow up with Dr. Mims in our office I have personally seen and examined the patient, performed the documentation and the assessment and plan as written. Number of minutes spent on the visit: 10.
--- NOTE | 2022-06-28 01:35 | P.DS ---
Providers Date of admission: 06/26/22 07:03 Attending physician: Josey Reardon MD Consults: 06/24/22 12:32 Consult Physician Routine Consulting Provider: Linnette Ernst Consult Reason/Comments: copd exac Do you want consulting provider notified?: Yes Primary care physician: Stated None Hospital Course: Diagnoses: 1. Acute hypoxemic respiratory failure, improved, patient was discharge to home oxygen 2. Acute exacerbation COPD, improved and cleared by pulmonary for discharge 3. Early left lower lobe pneumonia; improved the patient will be discharged on short course of oral antibiotic 4. Hypertension; 6. Morbid obesity; Hospital course: 71-year-old male presenting with chief complaint of shortness of breath. Patient evaluated by pulmonary service for his COPD and left lower lobe pneum onia he was treated with Zithromax, ceftriaxone and IV Solu-Medrol, patient showed interval improvement in today's back to baseline. Patient fully awake and oriented, breathing easily, no exertional dyspnea, patient qualify for home oxygen. Patient denies any other symptoms, patient denies chest pain. No change in urine or bowel habits.. No fever Patient eager to go home today, at bedside all questions answered. patient was cleared for discharge by pulmonary service. Problems and management plan were discussed with the patient and he verbalized understanding and acceptance Patient was found stable and can be discharged home in guarded prognosis however he needs follow-up as an outpatient. Patient was instructed to follow up with PCP within one week and patient agrees Patient was instructed to follow up with Dr. Mims in 1-2 weeks after discharge and he agrees. Physical exam Gen: patient is a AAOx3, no distress CVS: S1-S2, RRR, no murmur Lungs: B/L CTA, no wheezing Abdomen: soft, no distention, no tenderness, positive bowel sounds Extremity: no leg edema or induration Time spent more than 35 minutes Patient Condition at Discharge: Serious Plan - Discharge Summary New Discharge Prescriptions: New guaiFENesin-DM 100-10MG/5ML [Robitussin DM] 0 ml PO Q6HR PRN 5 Days #60 ml PRN Reason: Cough Acetaminophen Tab [Tylenol] 650 mg PO Q6HR PRN tab PRN Reason: Fever And/ Or Pain cefUROXime axetiL [Ceftin] 500 mg PO BID 7 Days #14 tab Famotidine [Pepcid] 20 mg PO BID #60 tab predniSONE 10 mg PO DIRECTED #40 tab Continue Beclomethasone Dipropionate [Qvar 40 mcg Redihaler] 2 puff INHALATION RT-BID PRN PRN Reason: Shortness Of Breath Albuterol Sulfate [Proair Hfa] 2 puff INHALATION RT-Q4H PRN PRN Reason: Shortness Of Breath Discharge Medication List Albuterol Sulfate [Proair Hfa] 2 puff INHALATION RT-Q4H PRN 07/21/19 [History] Beclomethasone Dipropionate [Qvar 40 mcg Redihaler] 2 puff INHALATION RT-BID PRN 07/21/19 [History] Acetaminophen Tab [Tylenol] 650 mg PO Q6HR PRN tab 06/27/22 [Rx] Famotidine [Pepcid] 20 mg PO BID #60 tab 06/27/22 [Rx] cefUROXime axetiL [Ceftin] 500 mg PO BID 7 Days #14 tab 06/27/22 [Rx] guaiFENesin-DM 100-10MG/5ML [Robitussin DM] 0 ml PO Q6HR PRN 5 Days #60 ml 06/27/22 [Rx] predniSONE 10 mg PO DIRECTED #40 tab 06/27/22 [Rx] Follow up Appointment(s)/Referral(s): [facility] [NON-STAFF] - As Needed (oxygen ) Chuy Mims DO [Doctor of Osteopathic Medicine] - 07/11/22 2:00 pm None,Stated [Primary Care Provider] - 1-2 days Patient Instructions/Handouts: COPD (Chronic Obstructive Pulmonary Disease) (DC) Activity/Diet/Wound Care/Special Instructions: heart healthy low carbohydrate diet activity is restricted till you see your doctor Discharge Disposition: HOME SELF-CARE
== END 2022-06-27 12:36 | disposition home or self-care (01) | DRG 193 ==
LOC: EC 15:49 → 6NMEDSUR 06-24 00:15 → 4SSUR 06-24 00:33 → OBSVTOIN 06-26 07:03
PROVIDERS: ADMIT Internal Medicine; ATTEND Internal Medicine
DX: J18.9 Pneumonia, unspecified organism (principal); J96.01 Acute respiratory failure with hypoxia; J98.11 Atelectasis; Z68.42 Body mass index [BMI] 45.0-49.9, adult; E66.01 Morbid (severe) obesity due to excess calories; J43.9 Emphysema, unspecified; Z20.822 Contact with and (suspected) exposure to COVID-19; I10 Essential (primary) hypertension; K21.9 Gastro-esophageal reflux disease without esophagitis; Z87.891 Personal history of nicotine dependence; Z71.3 Dietary counseling and surveillance
CPT/HCPCS: 36415; 71046; 71275; 80048; 80053; 83605; 83735; 84145; 84484; 85025; 85379; 85610; 85730; 87070; 87205; 87636; 93005; 94640; 94760; 96365; 96366; 96367; 96375; 99285

== ENCOUNTER → 2022-12-05 | Outpatient (CLI) | payer MEDICARE ==
--- NOTE | 2022-12-06 07:42 | XR ---
EXAMINATION TYPE: XR Hip Complete RT DATE OF EXAM: 12/05/2022 4:40 PM INDICATION: Patient age:Male; 72 years old; Reason for study: M5450,[id number] LBP,LUMBAGO,RT HIP PAIN; COMPARISON: None. TECHNIQUE: The right hip was examined in the frontal and lateral projections . FINDINGS: No evidence of any acute osseous pathology, joint dislocation, or soft tissue swelling. Mil d medial joint space narrowing with acetabular sclerosis and marginal spurring. IMPRESSION: 1. No acute osseous pathology. 2. 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
--- NOTE | 2022-12-06 07:43 | XR ---
EXAMINATION TYPE: XR lumbosacral spine min 4V DATE OF EXAM: 12/05/2022 4:40 PM INDICATION: Patient age:Male; 72 years old; Reason for study: M5450,[id number] LBP,LUMBAGO,RT HIP PAIN; COMPARISON: None TECHNIQUE: Frontal, lateral , bilateral oblique and coned in L5-S1 lateral views of the spine. FINDINGS: There are 5 lumbar type vertebral bodies identified. No evidence of any acute osseous patho logy. No evidence of loss of vertebral body height is seen. Two-level disc space narrowing with endp late sclerosis and anterior ossified ptosis. Multilevel lower lumbar spine facet arthropathy most pro nounced at L5-S1. At least mild bilateral neural foraminal stenosis at L5-S1. There is normal alignme nt of the lumbar vertebral bodies. Atherosclerotic calcification of the aorta. IMPRESSION: 1. No acute process. 2. [id number] multilevel degenerative disc disease and facet arthropathy. This is most pronoun brent at L5-S1.
== END | disposition home or self-care (01) ==
LOC: RADXRYALE 16:01
PROVIDERS: ATTEND Physician Assistant Medical
DX: M16.11 Unilateral primary osteoarthritis, right hip (principal); M51.17 Intervertebral disc disorders with radiculopathy, lumbosacral region; M47.27 Other spondylosis with radiculopathy, lumbosacral region
CPT/HCPCS: 72110; 73502

== ENCOUNTER → 2023-01-17 | Outpatient (CLI) | payer MEDICARE ==
--- NOTE | 2023-01-17 18:15 | MR ---
EXAMINATION TYPE: MR lumbar spine wo con DATE OF EXAM: 01/17/2023 6:06 PM CLINICAL INDICATION:Male, 72 years old with history of M47.816, M43.16, M48.062, M51.36, Low back ignacio n into right side COMPARISON: None TECHNIQUE: Multi planar, multi sequence imaging was performed utilizing: T1-weighted, T2-weighted, a nd turbo inversion recovery imaging of the lumbar spine. IV Contrast: (None if empty) FINDINGS: Alignment: The lumbar vertebral bodies have preserved heights and alignment. Cord: The conus medullaris and the distal spinal cord appear unremarkable with regards to their signa l intensity and morphology. Bones/Discs: Multilevel disc degeneration changes with osteophyte formation, disc space narrowing, Sc hmorl's nodes, and facet joint arthropathy. No abnormal inversion recovery signal to suggest bony angela ma. Multilevel disc desiccation is present. T12-L1: No evidence of significant spinal canal stenosis or neural foraminal stenosis. L1-L2: No evidence of significant spinal canal stenosis or neural foraminal stenosis. L2-L3: Disc bulge and facet joint arthropathy result in mild spinal canal and mild bilateral neural f oraminal stenosis. L3-L4: Disc bulge and facet joint arthropathy result in severe spinal canal and moderate bilateral ne ural foraminal stenosis. L4-L5: Disc bulge and facet joint arthropathy result in mild spinal canal and moderate bilateral neur al foraminal stenosis. L5-S1: The disc is rounded posterior morphology without significant spinal canal stenosis. Facet join t arthropathy with moderate right and severe left neural foraminal stenosis. Osteophyte impresses upo n the cauda equina on the left. No significant spinal canal or neural foraminal stenosis in the remainder of the visualized levels. Other findings: None. IMPRESSION: 1. L3-L4 severe spinal canal stenosis with moderate bilateral neural foraminal stenosis. 2. L5-S1 severe left neural foraminal stenosis with osteophyte which also impresses upon the cauda eq uina on the left.
== END | disposition home or self-care (01) ==
LOC: RADMRIMAIN 16:57
PROVIDERS: ATTEND Physical Medicine & Rehabilitation
DX: M47.816 Spondylosis without myelopathy or radiculopathy, lumbar region (principal); M43.16 Spondylolisthesis, lumbar region; M48.062 Spinal stenosis, lumbar region with neurogenic claudication; M51.36 Other intervertebral disc degeneration, lumbar region; M48.061 Spinal stenosis, lumbar region without neurogenic claudication; M99.73 Connective tissue and disc stenosis of intervertebral foramina of lumbar region
CPT/HCPCS: 72148

== ENCOUNTER → 2024-06-25 | Outpatient (CLI) | payer MEDICARE ==
[2024-06-25 16:00] LABS: HCT 46.9 % (39.6-50.0); HGB 15.1 g/dL (13.0-17.0); MCH 29.1 pg (27.0-32.0); MCHC 32.2 g/dL (32.0-37.0); MCV 90.4 FL (80.0-97.0); Mean Platelet Volume 10.6 FL (9.5-12.2); NRBC Per 100 WBC 0 X 10*3/uL (0.00-0.01); Platelet Count 182 X 10*3/uL (140-440); RBC 5.19 X 10*6/uL (4.40-5.60); RDW 13.3 % (11.5-14.5); WBC 7.74 X 10*3/uL (4.50-10.00)
[2024-06-25 17:26] LABS: ALT 28 U/L (10-49); AST 40 U/L (14-35); Albumin 4.3 g/dL (3.8-4.9); Albumin/Globulin Ratio 1.79 Ratio (1.60-3.17); Alkaline Phosphatase 52 U/L (41-126); BUN/Creat Ratio 9.67 Ratio (12.00-20.00); Blood Urea Nitrogen 11.6 mg/dL (9.0-27.0); Calcium 9.5 mg/dL (8.7-10.3); Carbon Dioxide 25.7 mmol/L (21.6-31.8); Chloride 101 mmol/L (96-109); Chol/HDL Ratio 2.46 Ratio; Globulin 2.4 g/dL (1.6-3.3); Glucose 109 mg/dL (70-110); Potassium 3.9 mmol/L (3.5-5.5); Sodium 138 mmol/L (135-145); Total Bilirubin 0.4 mg/dL (0.3-1.2); Total Protein 6.7 g/dL (6.2-8.2)
[2024-06-25 17:31] LABS: NT-Pro-B-Type Natriuretic Pept 164 pg/mL (0-450)
== END | disposition home or self-care (01) ==
LOC: LABWHC1 09:48
PROVIDERS: ATTEND Student in an Organized Health Care Education/Training Program
DX: Z13.6 Encounter for screening for cardiovascular disorders (principal); I50.9 Heart failure, unspecified; E03.9 Hypothyroidism, unspecified; E11.9 Type 2 diabetes mellitus without complications; E78.5 Hyperlipidemia, unspecified; D72.9 Disorder of white blood cells, unspecified; R79.89 Other specified abnormal findings of blood chemistry
CPT/HCPCS: 36415; 80053; 80061; 83036; 83880; 84443; 85027; 86141

== ENCOUNTER → 2024-07-09 | Day surgery (SDC) | payer MEDICARE ==
[~2024-07-09] MED LIST: ALPRAZolam 0.25 MG TAB PO PRN; ALPRAZolam 0.5 MG TAB PO PRN; ATORVASTATIN 80 MG TAB PO STA; NITROGLYCERIN SL TABS 0.4 MG TAB SUBLINGUAL PRN; RX INFO: IV CONTRAST WAS GIVEN 1 EACH MISC MISCELLANE PRN; SODIUM CHLORIDE 0.9% 1,000 ML IV SCH
[2024-07-09] MEDS: IV FLUID CONTINUATION 1,000 ML IV ONE (08:06)
[2024-07-09] MEDS: ASPIRIN 325 MG TAB PO STA (08:09)
[2024-07-09] MEDS: SODIUM CHLORIDE 0.9% 1,000 ML in EMPTY BAG 1 BAG IV SCH (08:09)
[2024-07-09 08:22] VITALS: TEMP 97.8
[2024-07-09] MEDS: fentaNYL (PF) 50 MCG/ML 2 ML AMP IVP ONE (10:39)
[2024-07-09] MEDS: MIDAZOLAM 2 MG/2 ML VIAL IVP ONE (10:39)
[2024-07-09] MEDS: LIDOCAINE 1% INJ 10MG/ML (20 ML MDV) SQ ONE (10:39)
[2024-07-09] MEDS: HEPARIN SODIUM,PORCINE 10,000 UNIT in SODIUM CHLORIDE 0.9% 1,000 ML IRRIGATION PRN (11:01)
[2024-07-09] MEDS: HEPARIN SODIUM,PORCINE (1 ML) 2,500 UNIT in SODIUM CHLORIDE 0.9% 250 ML IRRIGATION PRN (11:01)
[2024-07-09] MEDS: IOPAMIDOL-370 100ML BTL INJ ONE (11:22)
[2024-07-09 11:25] LABS: O2 Sat Blood Gas 64.5 %
[2024-07-09 11:29] LABS: O2 Sat Blood Gas 65.6 %
--- NOTE | 2024-07-09 12:08 | P.CARDCATH ---
Date of Procedure: 07/09/24 Description of Procedure: DIAGNOSTIC CORONARY ANGIOGRAPHY and LEFT HEART CATH and right heart catheterization report PROCEDURES PERFORMED: Right common femoral access ultrasound assisted Right common femoral angiogram Left heart catheterization Right heart catheterization Selective coronary angiography Moderate conscious sedation 47 mins 6 [place] Angio-Seal VIP closure INDICATION: Dyspnea on exertion, congestive heart failure, lower extremity edema BRIEF HPI: Patient is a 73-year-old male saw me in cardiology office because of increased worsening shortness of breath and lower extremity edema not responding to diuretic therapy. He reports NYHA class III symptoms with getting short of breath with minimal exertion like getting up and walking to his mailbox. He had a Lexiscan nuclear stress test in 2023 which showed small area of mild intensity reversible perfusion defect, low probability scan. He had an echocardiogram in May 2023 which showed preserved LV size systolic function with no regional wall motion normality with no major valvular dysfunction, aortic root at 4.2 cm. He has been on antianginals and antihypertensives with diuretics with no response therefore he was scheduled for heart catheterization procedure. CONSENT: I have explained the procedural steps of above-mentioned procedures in layman's terms to the patient. I discussed the risks (including but not limited to stroke, emergent vascular or cardiac surgery or ), benefits and alternative therapies for the above-mentioned procedure. I discussed the risks of sedation/analgesia and blood product administration (if indicated). The patient has indicated understanding and acceptance of these risks. Conscious Sedation: Patient's ECG, heart rate, blood pressure, pulse oximetry were monitored throughout the duration of procedure under my direct supervision. 0.5 mg Versed and 25 mcg Fentanyl were used for induction of moderate conscious sedation. Total duration of moderate concious sedation 47 minutes. PROCEDURAL DETAILS: Patient was prepped and draped in sterile fashion. Ultrasound was utilized to visualize the right radial artery. It was interesting to find that both radial artery and ulnar artery was present on the radial aspect of the wrist therefore we did not perform right radial approach as it might cause problems when putting TR band on. Decision was made to proceed with right common femoral access. Right common femoral artery was identified using ultrasound. Bifurcation site was identified. 1% lidocaine was infiltrated over the right common femoral artery under the skin. Under ultrasound guidance and with modified Seldinger technique, right common femoral access was obtained. The needle was exchanged for the wire and the wire was exchanged for the slender glide sheath. The sheath was secured and flushed in place and right common femoral angiogram was performed to visualize the arteriotomy site. After confirming appropriate arteriotomy site we performed the heart catheterization procedure. 6 Guatemalan JR4 diagnostic catheter was advanced over the wire. The catheter was manipulated wire was removed and catheter was placed. Catheter was manipulated to selectively engage the left coronary ostium. Left coronary angiogram was performed. This catheter was exchanged for a 6 Guatemalan JR4 diagnostic catheter. The catheter was manipulated to select engage the right coronary ostium. Right coronary angiogram was performed. This catheter was exchanged for a 6 [place]alan pigtail catheter. Pigtail catheter was successfully prolapsed across the aortic valve without any difficulty. Wire was removed and the catheter was flushed. LV pressures were obtained. Pullback was performed across aortic valve. Right heart catheterization 1% lidocaine was infiltrated in the right antecubital vein area. There was a IV in the right basilar vein which was placed in holding area. This IV cannula was exchanged for a wire and then for slender glide sheath. The sheath was secured in place and flushed. Wilson-Becca catheter was advanced through the sheath using a support of 0.021 wire. With the help with the wire the catheter was advanced to the wedge position. Sequential pressures and blood samples were collected from pulmonary capillary wedge location, pulmonary artery, RV and RA. When the catheter tip was in pulmonary artery thermodilution study was performed. Angiographic images were reviewed in detail. Catheter and wire were removed. Radial sheet was flushed. The right radial sheath was removed and a TR band was placed. Patent hemostasis was achieved. The patient tolerated the procedure well. Patient was transported back to the post catheterization holding area in stable condition. TECHNICAL DETAILS Total contrast used: Isovue [60 ml] Complications: [none] Estimated Blood loss: less than 15 ml HEMODYNAMICS: Aortic Pressure: 118/68 mmHg. LV pressure: 118/8 mmHg. LVEDP 15 mmHg. There was no significant gradient across the aortic valve. Mean RA: 6 mmHg RV: 28 over 4 mmHg, RVEDP 6 mmHg PA: 28/12, mean PA: 20 mmHg PCW: 16/12, mean 14 mmHg LVEDP 15 mmHg Oxygen saturation samples Femoral artery 89% RA 65% RV 65% PA 65% Dale cardiac output 6.6 L/min Dale cardiac index 2.72 L/min/m Thermodilution cardiac output 5.42 L/min Thermodilution cardiac index 2.23 L/min/m SELECTIVE CORONARY ARTERIOGRAPHY: LEFT MAIN: Left main is very short and is essentially nonexistent. LAD and LCx arises essentially from separate ostium. LEFT ANTERIOR DESCENDING CORONARY ARTERY: Proximal LAD appears angiographically patent. Distal part of proximal LAD appears to have 50% diffuse tubular disease. Mid LAD gives multiple arteries from a small segment which include small septal branch, medium size diagonal 1 branch, small caliber diagonal 2 branch and distal LAD. Medium size diagonal branch appears angiographically patent. Small caliber diagonal 2 and distal LAD appears to be 1.5 mm caliber vessel and essentially runs parallel reaching towards terminating before reaching the apex. LEFT CIRCUMFLEX CORONARY ARTERY: It is nondominant vessel. Proximal LCx appears to have 20 to 30% disease. It gives rise to a medium caliber OM1 branch which appears graphically patent. After giving OM branch mid LCx appears patent and gives a small AV groove branch and OM 2 branch. After giving OM 2 branch distal LCx is a small vessel and appears angiographically patent. RIGHT CORONARY ARTERY: Dominant vessel. The right coronary artery is a large caliber vessel. Proximal RCA has mild mid irregularities. Mid and distal RCA appears angiographically patent. Distal RCA bifurcates into medium caliber PDA and PL branch which appears angiographically patent. IMPRESSION: 1. 50% mid LAD disease 2. 20 to 30% proximal LCx disease 3. Minimally elevated LVEDP and wedge pressures 4. Essential WNL right-sided pressures. Pertinent cardiac labs HbA1c 6.2, NT-proBNP 164, LDL 38, TG 110, BUN 11, creatinine 1.2, Hb 15, TSH 2.6 PLAN: 100 cc/h for 5 hours Monitor patient for 5 hours Discharge home thereafter Follow-up in office thereafter Continue aspirin, rosuvastatin 10 mg, metoprolol succinate 25 daily, losartan 50 mg daily, Add Jardiance 10 mg daily Increase HCTZ to 25 mg daily Discontinue Imdur Performing Physician Kenneth Holbrook MD, FACC, RPVI Thank you for allowing [facility] to participate in this patient's care. Feel free to reach out in case of any followup questions.
[2024-07-09 18:33] VITALS: BP 119/74; PULSE 62; RESP 18
== END ==
LOC: CATHCVL 07:41
PROVIDERS: ATTEND Student in an Organized Health Care Education/Training Program
DX: I25.10 Atherosclerotic heart disease of native coronary artery without angina pectoris (principal); J44.9 Chronic obstructive pulmonary disease, unspecified; R60.0 Localized edema; I77.819 Aortic ectasia, unspecified site; E66.9 Obesity, unspecified; I11.0 Hypertensive heart disease with heart failure; I50.32 Chronic diastolic (congestive) heart failure; Z68.37 Body mass index [BMI] 37.0-37.9, adult; F17.210 Nicotine dependence, cigarettes, uncomplicated; Z79.82 Long term (current) use of aspirin; Z79.51 Long term (current) use of inhaled steroids
CPT/HCPCS: 93460; 85018; 82810; C1760; C1769 ×2; C1894 ×2; C1751; J2250; J1644 ×2; J2003; J3010; Q9967